=== PATIENT | male | born 1975 | race Caucasian/White ===

== ENCOUNTER 2021-01-02 12:43 | Emergency (ER) | payer BC, SELFPAY ==
[2021-01-02 12:50] VITALS: BP 128/72; PULSE 89; RESP 18; TEMP 36.5; O2SAT 99
--- NOTE | 2021-01-02 12:54 | ED.GENADULT ---
HPI - General Adult General Chief complaint: Upper Respiratory Infection Stated complaint: sinus congestion sore throat cough Time Seen by Provider: 01/02/21 12:54 Source: patient Mode of arrival: ambulatory Limitations: no limitations History of Present Illness HPI narrative: 45-year-old male patient presents to the [facility] with complaints of sore throat, sinus congestion, runny nose and a cough that started yesterday. Denies any fevers, body aches or chills. Denies any nausea, vomiting or diarrhea. Patient states he has tried taking a leftover inhaler which has made him feel little bit better. Denies any sinus medication. Patient states he did come into contact with his niece who had strep recently. Patient states he did get his second vaccine for his Covid about 6 weeks ago. Denies being positive for Covid in the last 3 months. Related Data Allergies Allergy/AdvReac Type Severity Reaction Status Date / Time No Known Allergies Allergy Unverified 10/08/16 10:44 Review of Systems Review of Systems: Narrative: CONSTITUTIONAL: Denies fever, chills, or sweats. EYES: Denies visual changes, redness, or discharge. ENT: Positive rhinorrhea, congestion, sore throat, denies otalgia. CARDIOVASCULAR: Denies chest pain, palpitations, or edema. RESPIRATORY: Positive nonproductive cough, with intermittent dyspnea. GASTROINTESTINAL: Denies abdominal pain, nausea, vomiting, or diarrhea. GENITOURINARY: Denies dysuria or hematuria. SKIN: Denies rash or itching. MUSCULOSKELETAL: Denies back pain, joint pain, or myalgia. NEUROLOGIC: Denies headache, numbness, or weakness. PSYCHIATRIC: Denies anxiety or depression. [facility] Past Medical History Medical History (Updated 01/02/21 @ 13:27 by JESS Bo) Asthma Cellulitis Dermatitis Comments At the time of my signature I agree with nursing past medical history, surgical, social, and family history. There is no relevant family history pertinent to the presenting complaint. Exam Narrative: Exam Narrative: GENERAL: Well-appearing, well-nourished, and in no acute distress. HEAD: Normocephalic, atraumatic. EYES: PERRLA and EOMI. ENT: Nares with erythema and edema noted bilaterally with the right nare swollen shut, no active rhinorrhea or epistaxis. Mucous membranes moist. Posterior pharynx with some postnasal drip present. Slight erythema. No tonsil enlargement noted no exudates or lesions present. Bilateral TMs are clear no erythema or foreign bodies in the canal. NECK: Supple. No lymphadenopathy CHEST: Clear to auscultation. No respiratory distress. Patient able talk in clear complete sentences. No tripoding noted. HEART: Regular rate and rhythm. No murmur heard. Normal peripheral pulses. ABDOMEN: Soft, nontender, nondistended, normal active bowel sounds. EXTREMITIES: Normal range of motion. No edema. SKIN: Warm, dry, no rash. NEURO: No focal deficits. Alert and oriented x3. Course Vital Signs Vital signs: Vital signs reviewed Medical Decision Making Differential Diagnosis Differential Diagnosis: Differential diagnosis: Allergic rhinitis, chronic sinusitis, tonsillitis, acute sinusitis, infectious mononucleosis, seasonal influenza, pertussis, diphtheria, meningococcal disease, viral syndrome, viral bronchitis, RSV, COVID-19 Notify patient that we did test him for a rapid strep today which did come back negative. Offered to test patient for COVID-19 and send him for testing to our Covid tent since he has only had symptoms now for 24 hours. Patient refused Covid testing. Discussed with patient that we are not able to do any type of work releases or work notes without Covid testing. Patient verbalized understanding of this. Discussed with patient that this most likely is sinus drainage or allergies that is causing his symptoms. Discussed with patient on discharge him home with a daily antihistamine, Tessalon Perles for his cough and he may also continue using the inhaler at h
== END 2021-01-02 13:30 | disposition home or self-care (01) ==
PROVIDERS: Emergency Provider Nurse Practitioner Family; PCP Nurse Practitioner Family
DX: J06.9 Acute upper respiratory infection, unspecified (principal); R05 Cough; J45.909 Unspecified asthma, uncomplicated
CPT/HCPCS: 87081; 87880; 99203; G0463